=== PATIENT | female | born 1975 | race Caucasian/White ===

== ENCOUNTER 2024-09-25 16:17 | Emergency (ER) | payer SELFPAY ==
[~2024-09-25] VITALS: Ht 160 cm; Wt 96.0 kg
[2024-09-25 16:20] VITALS: BP 135/81; PULSE 76; RESP 18; TEMP 36.9; O2SAT 97
[2024-09-25] MEDS: ACETAMINOPHEN 325MG TABLET PO ONE (20:15)
[2024-09-25 20:16] LABS: HCG SCREEN NEGATIVE
== END 2024-09-25 22:10 | disposition home or self-care (01) ==
LOC: ER 16:17
DX: M54.9 Dorsalgia, unspecified (principal); R10.84 Generalized abdominal pain; E11.9 Type 2 diabetes mellitus without complications; E78.00 Pure hypercholesterolemia, unspecified; Y92.410 Unspecified street and highway as the place of occurrence of the external cause; Y93.89 Activity, other specified; Y92.89 Other specified places as the place of occurrence of the external cause; Y99.8 Other external cause status
CPT/HCPCS: 74176; 84703; 99284